=== PATIENT | female | born 1975 | race Hispanic/Latino ===

== ENCOUNTER 2024-01-20 08:56 | Emergency (ER) | payer OTHER ==
[~2024-01-20] VITALS: Ht 162.6 cm; Wt 75.4 kg
[~2024-01-20 08:56] MED LIST: FAMCICLOVIR500 MG PO; MACROBID 100 M100 MG PO; NORCO 5-325 TA1 EACH PO; OMEPRAZOLE20 MG PO
[2024-01-20] MEDS ORDERED: IBUPROFEN600 MG PO (09:12)
[2024-01-20] MEDS ORDERED: diazePAM 10 MG/2 ML SYR IM ONE (09:30)
[2024-01-20] MEDS ORDERED: OXYCODONE/APAP 5/325 TAB PO ONE (09:30)
[2024-01-20] MEDS ORDERED: KETOROLAC TROMETHAMINE 60 MG/2 ML VIAL IM ONE (09:30)
[2024-01-20] MEDS ORDERED: LIDOCAINE HCL 4% 1 EACH PATCH TD ONE (09:30)
[2024-01-20] MEDS ORDERED: CYCLOBENZAPRINE10 MG PO (10:33)
[2024-01-20] MEDS ORDERED: LIDODERM1 EACH TOP (10:33)
[2024-01-20] MEDS ORDERED: KETOROLAC TROME10 MG PO (10:33)
[2024-01-20 10:44] VITALS: BP 106/59
[2024-01-20] MEDS ORDERED: LIDOCAINE PATCH REMOVAL 1 EA TD SCH (21:00)
== END 2024-01-20 10:44 | disposition home or self-care (01) ==
LOC: ED 08:56
DX: M54.9 Dorsalgia, unspecified (principal)
CPT/HCPCS: 96372; 99283-25; A9270; J1885; J3360